=== PATIENT | male | born 1980 | race Two or more races ===

== ENCOUNTER 2021-03-22 19:05 | Emergency (ER) | payer OTHER ==
[~2021-03-22] VITALS: Ht 175.3 cm; Wt 94.3 kg
[~2021-03-22 19:05] MED LIST: ORPH100T PO; ULTRACET PO
[2021-03-22] MEDS ORDERED: ALBUTEROL0.63 MG/3 IH (23:03)
[2021-03-22] MEDS ORDERED: IPRAT-ALBUT 0.5-3 ML IH (23:03)
== END 2021-03-22 23:19 | disposition home or self-care (01) ==
LOC: ER 19:05
DX: J20.9 Acute bronchitis, unspecified (principal); Z11.52 Encounter for screening for COVID-19

== ENCOUNTER 2021-10-26 17:37 | Emergency (ER) | payer OTHER ==
[~2021-10-26] VITALS: Ht 88.9 cm; Wt 99.8 kg
[~2021-10-26 17:37] MED LIST changes: +ALBUTEROL0.63 MG/3 IH; +IPRAT-ALBUT 0.5-3 ML IH
[2021-10-26] MEDS ORDERED: DOLOGEN 325-11 EACH PO (20:40)
[2021-10-26] MEDS ORDERED: ORPHENADRINE C100 MG PO (20:40)
== END 2021-10-26 20:54 | disposition home or self-care (01) ==
LOC: ER 17:37
DX: M94.0 Chondrocostal junction syndrome [Tietze] (principal)